=== PATIENT | male | born 1940 | race Two or more races ===

== ENCOUNTER 2021-06-13 10:13 | Outpatient (CLI) | payer MEDICARE ==
[2021-06-13] MEDS ORDERED: CHOL10003 PO (10:36)
[2021-06-13] MEDS ORDERED: ASCO100018 PO (10:36)
[2021-06-13] MEDS ORDERED: ELDERBERRY IMMUNE PO (10:36)
[2021-06-13] MEDS ORDERED: ACET1TAB52 PO (10:36)
[2021-06-13] MEDS ORDERED: MULT-449 PO (10:36)
[2021-06-13] MEDS ORDERED: ATOR10TA9 PO (10:36)
== END 2021-06-13 23:59 | disposition home or self-care (01) ==
LOC: STAR 10:13
PROVIDERS: ATTEND Surgery
DX: Z01.818 Encounter for other preprocedural examination (principal); K40.90 Unilateral inguinal hernia, without obstruction or gangrene, not specified as recurrent; I49.3 Ventricular premature depolarization
CPT/HCPCS: 93005

== ENCOUNTER 2021-06-18 08:55 | Day surgery (SDC) | payer MEDICARE ==
[~2021-06-18] VITALS: Ht 185.4 cm; Wt 88.1 kg
[~2021-06-18 08:55] MED LIST: ACET1TAB52 PO; ASCO100018 PO; ATOR10TA9 PO; CHOL10003 PO; ELDERBERRY IMMUNE PO; MULT-449 PO
[2021-06-18 09:23] VITALS: BP_DIAS 142
[2021-06-18] MEDS ORDERED: CHLORHEXIDINE 15 ML UDC PO ONE (09:30)
[2021-06-18] MEDS ORDERED: LACTATED RINGERS 1,000 ML IV SCH (09:30)
[2021-06-18] MEDS ORDERED: FENTANYL PF 250 MCG/5ML ONE (10:08)
[2021-06-18] MEDS ORDERED: BUPIVACAINE/PF 0.5% ONE (10:20)
[2021-06-18] MEDS ORDERED: EPINEPHRINE 1 MG/ML, 1ML ONE (10:21)
[2021-06-18] MEDS ORDERED: BUPIVACAINE/PF-EPI 0.5% 1:200K INFIL ONE (11:15)
[2021-06-18] MEDS ORDERED: DIAZEPAM 5 MG/ML, 2ML IVPush PRN (12:00)
[2021-06-18] MEDS ORDERED: HYDROmorphone 1 MG/ML, 1ML INJ IVPush PRN (12:00)
[2021-06-18] MEDS ORDERED: ACETAMINOPHEN 325 MG TABLET PO PRN (12:00)
[2021-06-18] MEDS ORDERED: LABETALOL 5MG/ML, 20ML IV PRN (12:00)
[2021-06-18] MEDS ORDERED: OXYcodone 5 MG/5 ML ORAL.SOL UDC PO PRN (12:00)
[2021-06-18] MEDS ORDERED: MEPERIDINE/PF 25MG/0.5ML IVPush PRN (12:00)
[2021-06-18] MEDS ORDERED: ONDANSETRON 2MG/ML, 2ML IVPush PRN (12:00)
[2021-06-18] MEDS ORDERED: hydrALAzine 20 MG/ML, 1ML IV PRN (12:00)
[2021-06-18] MEDS ORDERED: OXYcodone 5 MG/5 ML ORAL.SOL UDC ONE (12:01)
[2021-06-18] MEDS ORDERED: FENTANYL PF 100 MCG/2ML ONE (12:01)
[2021-06-18] MEDS: FENTANYL PF 100 MCG/2ML IV PRN ×2 (12:05→12:15)
[2021-06-18] MEDS ORDERED: OXYC5TAB98 PO (12:52)
== END 2021-06-18 14:03 | disposition home or self-care (01) ==
LOC: OUT 08:55 → MERGE 09:00 → OUT 14:03
PROVIDERS: ATTEND Surgery
DX: K40.90 Unilateral inguinal hernia, without obstruction or gangrene, not specified as recurrent (principal); E78.5 Hyperlipidemia, unspecified; E04.9 Nontoxic goiter, unspecified; K58.9 Irritable bowel syndrome, unspecified; Z20.822 Contact with and (suspected) exposure to COVID-19; Z79.899 Other long term (current) drug therapy; Z87.891 Personal history of nicotine dependence; Z88.2 Allergy status to sulfonamides
CPT/HCPCS: 49650; 87635; C1781; J0171; J3010; J7120